=== PATIENT | male | born 1960 | race Caucasian/White ===

== ENCOUNTER 2017-07-11 12:34 | Emergency (ER) | payer BC ==
[~2017-07-11] VITALS: Ht 172.7 cm; Wt 98.0 kg
[2017-07-11] MEDS ORDERED: AMOX-559 PO (12:41)
--- NOTE | 2017-07-11 12:44 | ER Report ---
History and Physical Time Seen By MD: 12:43 Hx. of Stated Complaint: RIGHT LEG PAIN, SWELLING. HPI/ROS CHIEF COMPLAINT: Right lower extremity swelling HISTORY OF PRESENT ILLNESS: 57-year-old male patient presents to emergency room with complaint of right lower extremity swelling. Patient states he's been ill for approximately 2 weeks. He states that he did go and see a urgent care last night and was started on antibiotics for that. Patient states though that he's been having some discomfort in the right lower leg. He states that he is noticed significant amounts swelling over the last few days. 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 He states that since his been sick that his activity level has decreased considerably. Patient denies having any fevers or chills. Patient states though that he has noticed that he has some discoloration to the right lower leg. He states that he did ask the provider at the urgent care, felt that it was more of a muscle strain. Patient states that he is concerned because he is noticed more swelling today and the swelling seems to go up into the lower upper leg. REVIEW OF SYSTEMS: Respiratory: No cough, no dyspnea. Cardiovascular: No chest pain, no palpitations. Gastrointestinal: No vomiting, no abdominal pain. Musculoskeletal: No back pain. Allergies: Coded Allergies: No Known Drug Allergies (Unverified , 07/11/17) Home Meds Active Scripts Rivaroxaban 15 Mg (XARELTO 15 MG) 15 Mg Tablet, 15 MG PO BID, #42 TAB Prov:JAMES MATTHEWS CIRCULAR RIPSAW OPERATOR 07/11/17 Reported Medications Amoxicillin/Pot Clav 875-125 Mg Tab (AUGMENTIN 875-125 TABLET) 1 Each Tablet, 1 TAB PO Q12H, TAB 07/11/17 Past Medical/Surgical History Patient has a past medical history of anxiety. Patient has a surgical history of hernia repair. Reviewed Nurses Notes: Yes Constitutional Vital Sign - Last 24 Hours 07/11/17 07/11/17 07/11/17 07/11/17 12:39 13:00 13:30 14:00 Temp 98.1 Pulse 60 72 71 75 Resp 18 17 17 10 B/P (MAP) 161/91 131/89 (103) 128/84 (99) 126/86 (99) Pulse Ox 91 91 O2 Delivery Room Air 07/11/17 07/11/17 07/11/17 14:30 15:00 15:30 Pulse 66 65 77 Resp 16 10 16 B/P (MAP) 127/89 (102) 142/97 (112) 148/103 (118) Pulse Ox 93 92 91 Physical Exam General Appearance: The patient is alert, has no immediate need for airway protection and no current signs of toxicity. Respiratory: Chest is non tender, lungs are clear to auscultation. Cardiac: regular rate and rhythm Gastrointestinal: Abdomen is soft and non tender, no masses, bowel sounds normal. Musculoskeletal: Neck: Neck is supple and non tender. Extremities have full range of motion and are non tender. Patient does have swelling to the right lower extremity, it does appear to be slightly reddened. The temperature is normal. Skin: No rashes or lesions. DIFFERENTIAL DIAGNOSIS: After history and physical exam differential diagnosis was considered for DVT, muscle strain, contusion. Medical Decision Making Data Points Result Diagram: 07/11/17 1247 07/11/17 1247 Laboratory Hematology Test 07/11/17 12:47 07/11/17 15:28 Red Blood Count 5.02 M/uL (4.00-5.60) Mean Corpuscular Volume 91.3 fL (80.0-96.0) Mean Corpuscular Hemoglobin 31.5 pg (26.0-33.0) Mean Corpuscular Hemoglobin Concent 34.5 g/dL (32.0-36.0) Red Cell Distribution Width 13.7 % (11.5-14.5) Mean Platelet Volume 7.9 fL (7.2-11.1) Neutrophils (%) (Auto) 60.9 % (39.4-72.5) Lymphocytes (%) (Auto) 27.8 % (17.6-49.6) Monocytes (%) (Auto) 9.4 % (4.1-12.4) Eosinophils (%) (Auto) 1.3 % (0.4-6.7) Basophils (%) (Auto) 0.6 % (0.3-1.4) Nucleated RBC Relative Count (auto) 0.0 /100WBC Neutrophils # (Auto) 4.3 K/uL (2.0-7.4) Lymphocytes # (Auto) 2.0 K/uL (1.3-3.6) Monocytes # (Auto) 0.7 K/uL (0.3-1.0) Eosinophils # (Auto) 0.1 K/uL (0.0-0.5) Basophils # (Auto) 0.0 K/uL (0.0-0.1) Nucleated RBC Absolute Count (auto) 0.00 K/uL Prothrombin Time 13.6 seconds (12.0-14.4) Prothromb Time International Ratio 1.03 Activated Partial Thromboplast Time 30 seconds (23-35) Sodium Level 137 mmol/L (137-145) Potassium Level 4.3 mmol/L (3.5-5.0) Chloride Level 102 mmol/L (98-107) Carbon Dioxide Level 24 mmol/L (22-30) Blood Urea Nitrogen 14 mg/dl (9-21) Creatinine 1.00 mg/dl (0.66-1.25) Glomerular Filtration Rate Calc > 60.0 Random Glucose 94 mg/dl (75-110) Calcium Level 9.5 mg/dl (8.4-10.2) Total Bilirubin 0.7 mg/dl (0.2-1.3) Aspartate Amino Transf (AST/SGOT) 58 U/L (0-35) Alanine Aminotransferase (ALT/SGPT) 88 U/L (0-56) Alkaline Phosphatase 141 U/L (0-126) Total Protein 8.2 gm/dl (6.3-8.2) Albumin 4.3 g/dl (3.5-5.0) Chemistry Test 07/11/17 12:47 07/11/17 15:28 White Blood Count 7.1 k/uL (4.5-11.0) Red Blood Count 5.02 M/uL (4.00-5.60) Hemoglobin 15.8 g/dL (14.0-18.0) Hematocrit 45.8 % (42.0-52.0) Mean Corpuscular Volume 91.3 fL (80.0-96.0) Mean Corpuscular Hemoglobin 31.5 pg (26.0-33.0) Mean Corpuscular Hemoglobin Concent 34.5 g/dL (32.0-36.0) Red Cell Distribution Width 13.7 % (11.5-14.5) Platelet Count 171 K/uL (150-450) Mean Platelet Volume 7.9 fL (7.2-11.1) Neutrophils (%) (Auto) 60.9 % (39.4-72.5) Lymphocytes (%) (Auto) 27.8 % (17.6-49.6) Monocytes (%) (Auto) 9.4 % (4.1-12.4) Eosinophils (%) (Auto) 1.3 % (0.4-6.7) Basophils (%) (Auto) 0.6 % (0.3-1.4) Nucleated RBC Relative Count (auto) 0.0 /100WBC Neutrophils # (Auto) 4.3 K/uL (2.0-7.4) Lymphocytes # (Auto) 2.0 K/uL (1.3-3.6) Monocytes # (Auto) 0.7 K/uL (0.3-1.0) Eosinophils # (Auto) 0.1 K/uL (0.0-0.5) Basophils # (Auto) 0.0 K/uL (0.0-0.1) Nucleated RBC Absolute Count (auto) 0.00 K/uL Prothrombin Time 13.6 seconds (12.0-14.4) Prothromb Time International Ratio 1.03 Activated Partial Thromboplast Time 30 seconds (23-35) Glomerular Filtration Rate Calc > 60.0 Calcium Level 9.5 mg/dl (8.4-10.2) Total Bilirubin 0.7 mg/dl (0.2-1.3) Aspartate Amino Transf (AST/SGOT) 58 U/L (0-35) Alanine Aminotransferase (ALT/SGPT) 88 U/L (0-56) Alkaline Phosphatase 141 U/L (0-126) Total Protein 8.2 gm/dl (6.3-8.2) Albumin 4.3 g/dl (3.5-5.0) Coagulation Test 07/11/17 12:47 07/11/17 15:28 Prothrombin Time 13.6 seconds Prothromb Time International Ratio 1.03 Activated Partial Thromboplast Time 30 seconds EKG/Imaging Imaging EXAMINATION: Right Lower Extremity Venous Ultrasound HISTORY: Leg swelling. TECHNIQUE: Ultrasound evaluation of the right lower extremity veins was performed with color and spectral Doppler and compression views. COMPARISON: None. FINDINGS: Exam is positive for DVT in the right leg. Thrombus begins in the mid femoral vein at the mid thigh and extends inferiorly into the popliteal vein and into the segmentally visualized posterior tibial and peroneal veins in the upper calf. The right common femoral, proximal deep femoral, and proximal femoral vein are patent and compressible, without evidence of intraluminal thrombus. Visualized upper greater saphenous vein is patent. IMPRESSION: Positive exam for DVT in the right leg. Thrombus begins in the mid femoral vein at the mid thigh and extends into the proximal deep calf veins. Findings were discussed with JAMES MATTHEWS at 07/11/2017 2:11 PM. Report Dictated By: Danny Allison MD at 07/11/2017 2:07 PM Report E-Signed By: Danny Allison MD at 07/11/2017 2:14 PM ED Course/Re-evaluation ED Course Patient was admitted to an exam room, history of physical were obtained. Differential diagnoses were considered. On examination patient does have swelling to the right lower extremity, does have some redness. A IV was started , a CBC, CMP, PT, PTT were done. Lab results were unremarkable, liver enzymes were slightly elevated which patient states is normal for him. INR was 1.03. An ultrasound was done of the right lower extremity. Patient was found to have a DVT in the right leg starting mid thigh going down to the upper part of his calf. I discussed this with Dr. Wilkinson, hospitalist. He did not feel there is any need to admit the patient to the hospital but can be treated as an outpatient. I spoke with the patient. Informed him of the lab results as well as imaging results. We discussed options as far as treatment. He states that he would prefer to do the Xarelto. This weights easier as far as not having to do the injections nor having to do the continual lab work. Prescription was called into his pharmacist. I would like him to follow-up with his primary care provider, which is [facility] in the next week for evaluation. He will also need to get a prescription to last for the next several months. Patient is to return if he develops any shortness of breath, chest pain. Patient and verbalized understanding and agreement with plan. Decision to Disposition Date: Jul 11, 2017 Decision to Disposition Time: 15:18 Depart Departure Latest Vital Signs Vital Signs Date Time Temp Pulse Resp B/P (MAP) Pulse Ox O2 Delivery O2 Flow Rate FiO2 07/11/17 15:30 77 16 148/103 (118) 91 07/11/17 12:39 98.1 Room Air Impression: Primary Impression: DVT (deep venous thrombosis) Condition: Improved Disposition: HOME OR SELF-CARE New Scripts Rivaroxaban 15 Mg (XARELTO 15 MG) 15 Mg Tablet 15 MG PO BID, #42 TAB Prov: JAMES MATTHEWS 07/11/17 Patient Instructions: Deep Venous Thrombosis (ED) Additional Instructions: Normal activity for the next week, after that time you may return to your exercise program. Take the medication as prescribed. Follow up with your primary care provider early next week. Return to the ER if condition worsens; shortness of breath, chest pain, coughing up blood. You may take Tylenol as needed for pain. Limit activity by pain. Make sure that you are getting up walking around during the day when at work. When traveling you should stop every 1-2 hours and get out and walk. Problem Qualifiers Primary Impression: DVT (deep venous thrombosis) DVT location: lower extremity Affected thrombotic vein of extremity: femoral Chronicity: acute Laterality: right Qualified Codes: I82.411 - Acute embolism and thrombosis of right femoral vein JAMES MATTHEWS Jul 11, 2017 12:44
[2017-07-11 13:05] LABS: PLATELET COUNT, AUTOMATED 171 K/uL (150-450)
[2017-07-11 13:14] LABS: INR 1.03
--- NOTE | 2017-07-11 14:18 | RADIOLOGY IMAGING REPORT ---
[place]AC[place] [facility] [place] NAME: Kvng Manzanares : 1960 MR: [id number] V: [id number] EXAM DATE: ORDERING PHYSICIAN: JAMES MATTHEWS TECHNOLOGIST: Location: [facility] Patient: Kvng Manzanares : 1960 Visit/Account:[id number] Date of Sevice: 07/11/2017 EXAMINATION: Right Lower Extremity Venous Ultrasound HISTORY: Leg swelling. TECHNIQUE: Ultrasound evaluation of the right lower extremity veins was performed with color and spe ctral Doppler and compression views. COMPARISON: None. FINDINGS: Exam is positive for DVT in the right leg. Thrombus begins in the mid femoral vein at the mid thigh a nd extends inferiorly into the popliteal vein and into the segmentally visualized posterior tibial an d peroneal veins in the upper calf. The right common femoral, proximal deep femoral, and proximal femoral vein are patent and compressibl e, without evidence of intraluminal thrombus. Visualized upper greater saphenous vein is patent. IMPRESSION: Positive exam for DVT in the right leg. Thrombus begins in the mid femoral vein at the mid thigh and extends into the proximal deep calf veins. Findings were discussed with JAMES MATTHEWS at 07/11/2017 2:11 PM. Report Dictated By: Danny Allison MD at 07/11/2017 2:07 PM Report E-Signed By: Danny Allison MD at 07/11/2017 2:14 PM WSN:[id number]
[2017-07-11] MEDS ORDERED: RIVA15TA PO (15:21)
[2017-07-11 15:30] VITALS: BP 148/103
[2017-07-11] MEDS ORDERED: RIVAROXABAN 10 MG TAB PO ONE (15:35)
--- NOTE | 2017-07-15 14:32 | Transitional Care Management ---
TCM Discharge Criteria Transitional Care Comment: 07.15 No answer--left message ALMA DELIA MASON Jul 15, 2017 14:32
== END 2017-07-11 15:53 | disposition home or self-care (01) ==
LOC: ER 12:48
DX: I82.411 Acute embolism and thrombosis of right femoral vein (principal)
CPT/HCPCS: 36415; 81241; 81291; 82040; 82247; 82310; 82374; 82435; 82565; 82947; 83090; 84075; 84132; 84155; 84295; 84450; 84460; 84520; 85025; 85300; 85303; 85306; 85610; 85730; 86147; 99284

== ENCOUNTER → 2018-05-05 | Outpatient (CLI) | payer BC ==
[~2018-05-05] MED LIST: AMOX-559 PO; RIVA15TA PO
--- NOTE | 2018-05-05 12:10 | RADIOLOGY IMAGING REPORT ---
FACILITY: [facility] [place] PATIENT NAME: Kvng Manzanares : 1960 MR: [id number] V: [id number] EXAM DATE: ORDERING PHYSICIAN: NILO BURK TECHNOLOGIST: [place] [facility] [place]: Kvng Manzanares : 1960 Visit/Account:[id number] Date of Sevice: 05/05/2018 Exam type: LUMBAR SPINE 2 OR 3 VIEW History: Acute shoulder pain when rotating after fall, history of spondylosis, chronic low back pain Comparison: None. Findings: Two views the lumbar spine demonstrate five nonrib-bearing lumbar-type vertebral bodies. There there is a 6 mm anterior listhesis of L3 with respect L4 with mild disc space narrowing. There is 8 mm an terolisthesis of L4 with respect L5 with moderate disc space narrowing and degenerative endplate lind ges. Mild to moderate spondylotic changes are also seen in the visualized portion of the lower thora cic spine. IMPRESSION: 1. Grade 1 spondylolisthesis of L3 with respect L4 and L4 with respect L5 with associated disc space narrowing as detailed above Report Dictated By: Melinda Marion MD at 05/05/2018 12:04 PM Report E-Signed By: Melinda Marion MD at 05/05/2018 12:06 PM WSN:[email or web address]
--- NOTE | 2018-05-05 12:10 | RADIOLOGY IMAGING REPORT ---
FACILITY: [facility] PATIENT NAME: Kvng Manzanares : 1960 MR: [id number] V: [id number] EXAM DATE: ORDERING PHYSICIAN: NILO BURK TECHNOLOGIST: Location: [facility] - [place] Patient: Kvng Manzanares : 1960 Visit/Account:[id number] Date of Sevice: 05/05/2018 Exam type: SHOULDER MIN 2 VIEWS LEFT History: Acute shoulder pain when rotating after fall Comparison: None. Findings: Four views the left shoulder demonstrate no evidence of acute fracture or dislocation. There is very mild narrowing at the left glenohumeral joint. No evidence of a left AC joint separation. IMPRESSION: 1. Very mild narrowing at the left glenohumeral joint although no evidence of acute fracture or disl ocation Report Dictated By: Melinda Marion MD at 05/05/2018 12:06 PM Report E-Signed By: Melinda Marion MD at 05/05/2018 12:07 PM WSN:[email or web address]
== END ==
LOC: RAD 09:20
PROVIDERS: ATTEND Family Medicine
DX: M43.16 Spondylolisthesis, lumbar region (principal); M25.512 Pain in left shoulder; M47.26 Other spondylosis with radiculopathy, lumbar region
CPT/HCPCS: 72100

== ENCOUNTER 2018-10-29 00:21 | Day surgery (SDC) | payer BC ==
[~2018-10-29] VITALS: Ht 172.7 cm; Wt 91.6 kg
[2018-10-29] VITALS (8 sets, daily range): BP systolic 98–134; BP diastolic 59–96
[~2018-10-29 00:21] MED LIST changes: +CEPH250C37 PO; +RIVA20TA PO
[2018-10-29] MEDS ORDERED: PROPOFOL EMUL(*) 10MG/ML 20 ML 40 ML ONE (11:48)
[2018-10-29] MEDS ORDERED: LIDOCAINE MPF 1% 5 ML VIAL ONE (11:48)
[2018-10-29] MEDS ORDERED: LIDOCAINE/SOD BICARB 8.4% SYR ID ONE (11:55)
[2018-10-29] MEDS ORDERED: NORMOSOL R SOLN(*) 1000 ML BAG 1,000 ML IV PRN (11:55)
--- NOTE | 2018-10-29 12:37 | Short(Outpt) Discharge Summary ---
Discharge Summary Reason for Hosp/Final Diag: (1) History of adenomatous polyp of colon Status: Chronic Hospital Course & Plan: Colonoscopy with random biopsies completed without problems. (2) Loose stools Status: Chronic (3) History of DVT (deep vein thrombosis) Status: Chronic Departure Discharge to: Home, Self Care Discharge Instructions Home Meds Reported Medications Rivaroxaban 20 Mg (XARELTO 20 MG) 20 Mg Tablet, 20 MG PO QDAY, TAB 10/22/18 Cephalexin (KEFLEX) 250 Mg Capsule, 500 MG PO Q12H, #28 CAP 10/21/18 Discontinued Scripts Rivaroxaban 15 Mg (XARELTO 15 MG) 15 Mg Tablet, 15 MG PO BID, #42 TAB Prov:JAMES MATTHEWS KERRIE 07/11/17 Diet: Regular Activity: As Tolerated Special Instructions: Your colonoscopy was completed without problems and your prep was excellent (Good Job!!). I didn't find any inflammation, polyps, or cancer. I biopsied your colon to look for microscopic colitis which can cause loose stools. My office will call you in the next week or two to let you know what the biopsies reveal but, in any case, you should have another colonoscopy in 5 years due to your previous history of colon polyps. You may resume taking xarelto (your blood thinner) on Saturday, October 31. Try the 30 day diet and call my office in the next 4 to 6 weeks if your loose stools aren't improving on this diet. CHARITY HODGE MD Oct 29, 2018 12:37
== END 2018-10-29 13:49 | disposition home or self-care (01) ==
LOC: OR 00:21
PROVIDERS: ATTEND Surgery
DX: K52.9 Noninfective gastroenteritis and colitis, unspecified (principal); Z86.010 Personal history of colon polyps
CPT/HCPCS: 00811; 45380; 88305; J2001; J2704